=== PATIENT | male | born 1990 | race American Indian/Alaskan Native ===

== ENCOUNTER 2016-08-27 09:56 | Emergency (ER) | payer SELFPAY ==
[2016-08-27 11:27] LABS: Basophils % (Auto) 0.3 % (0.0-1.8); Eosinophils % (Auto) 0.1 % (0.0-4.3); Hematocrit 41.3 % (35.5-45.6); Hemoglobin 13.7 gm/dl (11.8-15.2); Mean Corpuscular HGB Conc 33 % (32-34); Mean Corpuscular Hemoglobin 31 pg (28-32); Mean Corpuscular Volume 94 fl (84-94); Platelet Count 190 K/mm3 (140-440); Red Blood Count 4.38 M/mm3 (3.65-5.03); White Blood Count 6.3 K/mm3 (4.5-11.0)
[2016-08-27 11:43] LABS: Anion Gap 16 mmol/L; BUN/Creatinine Ratio 15.55; Blood Urea Nitrogen 14 mg/dL (9-20); Calcium 9.4 mg/dL (8.4-10.2); Carbon Dioxide 26 mmol/L (22-30); Chloride 102.4 mmol/L (98-107); Glucose 127 mg/dL (75-100); Potassium 4.1 mmol/L (3.6-5.0); Sodium 140 mmol/L (137-145)
[2016-08-27] MEDS ORDERED: REGLAN IV ONE (13:20)
[2016-08-27] MEDS ORDERED: MORPHINE IV ONE (13:20)
[2016-08-27] MEDS ORDERED: BENADRYL IV ONE (13:20)
[2016-08-27] MEDS ORDERED: NACL 0.9% 1000 ML 1,000 ML IV ONE (13:20)
--- NOTE | 2016-08-27 13:21 | Emergency Department Report ---
ED Abdominal Pain HPI - General Chief Complaint: Nausea/Vomiting/Diarrhea Stated Complaint: FLANK PAIN /VOMITING Time Seen by Provider: 08/27/16 13:00 Source: patient, EMS Mode of arrival: Ambulatory Limitations: No Limitations - History of Present Illness Initial Comments: Patient complaining of intermittent right lower quadrant and right flank pain with nausea vomiting. Patient states he was seen for this in another ER 2 days ago but did not want to get his prescriptions filled because the pain went away. Patient denies fever, chills, dysuria, diarrhea. MD Complaint: abdominal pain -: Sudden, week(s) Radiation: RLQ, R flank Migration to: RLQ Severity: severe Quality: aching Consistency: intermittent, now resolved, colicky Improves With: nothing Associated Symptoms: nausea, vomiting. denies: diarrhea, chills, constipation - Related Data Previous Rx's Medication Instructions Recorded Last Taken Type Promethazine [Phenergan TAB] 25 mg PO Q6HR PRN #15 tab 08/27/16 Unknown Rx Sulfamethoxazole/Trimethoprim 1 each PO BID #20 tablet 08/27/16 Unknown Rx [Bactrim DS TAB] traMADol [Ultram 50 MG tab] 50 mg PO Q4HR PRN #15 tablet 08/27/16 Unknown Rx Allergies Allergy/AdvReac Type Severity Reaction Status Date / Time eggs Allergy Unknown Uncoded 08/27/16 10:48 ED Review of Systems ROS: Stated complaint: FLANK PAIN /VOMITING Other details as noted in HPI Constitutional: denies: chills, fever Eyes: denies: eye pain, eye discharge, vision change ENT: denies: ear pain, throat pain Respiratory: denies: cough, shortness of breath, wheezing Cardiovascular: denies: chest pain, palpitations Endocrine: no symptoms reported Gastrointestinal: abdominal pain, nausea, vomiting. denies: diarrhea, constipation, hematemesis, melena Genitourinary: denies: urgency, dysuria Musculoskeletal: denies: back pain, joint swelling, arthralgia Skin: denies: rash, lesions Neurological: denies: headache, weakness, paresthesias Psychiatric: denies: anxiety, depression Hematological/Lymphatic: denies: easy bleeding, easy bruising ED Past Medical Hx - Past Medical History Previous Medical History?: Yes Additional medical history: H.Pylori - Surgical History Past Surgical History?: Yes Additional Surgical History: EGD - Social History Smoking Status: Current Every Day Smoker Substance Use Type: Marijuana - Medications Home Medications: Home Medications Medication Instructions Recorded Confirmed Last Taken Type Promethazine [Phenergan TAB] 25 mg PO Q6HR PRN #15 tab 08/27/16 Unknown Rx Sulfamethoxazole/Trimethoprim 1 each PO BID #20 tablet 08/27/16 Unknown Rx [Bactrim DS TAB] traMADol [Ultram 50 MG tab] 50 mg PO Q4HR PRN #15 tablet 08/27/16 Unknown Rx ED Physical Exam - General Limitations: No Limitations General appearance: alert, in no apparent distress - Head Head exam: Present: atraumatic, normocephalic - Eye Eye exam: Present: normal appearance - ENT ENT exam: Present: mucous membranes moist - Neck Neck exam: Present: normal inspection - Respiratory Respiratory exam: Present: normal lung sounds bilaterally. Absent: respiratory distress - Cardiovascular Cardiovascular Exam: Present: regular rate, normal rhythm. Absent: systolic murmur, diastolic murmur, rubs, gallop - GI/Abdominal GI/Abdominal exam: Present: soft, tenderness, normal bowel sounds. Absent: distended, guarding, rebound - Rectal Rectal exam: Present: deferred - Extremities Exam Extremities exam: Present: normal inspection - Back Exam Back exam: Present: normal inspection, CVA tenderness (R). Absent: CVA tenderness (L), paraspinal tenderness, vertebral tenderness - Neurological Exam Neurological exam: Present: alert, oriented X3 - Psychiatric Psychiatric exam: Present: normal affect, normal mood - Skin Skin exam: Present: warm, dry, intact, normal color. Absent: rash ED Course Vital Signs 08/27/16 08/27/16 10:48 16:47 Temperature 97.8 F Pulse Rate 51 L 50 L Respiratory 18 20 Rate Blood Pressure 127/80 Blood Pressure 121/73 [Right] O2 Sat by Pulse 99 99 Oximetry - Reevaluation(s) Reevaluation #1: 08/27/16 14:47 Patient resting comfortably no distress noted. Patient afebrile normotensive normal cardiac. Reevaluation #2: 08/27/16 16:10 Discuss results findings with patient. Patient resting comfortably normotensive normal cardiac afebrile. Advised patient that after this visit he probably ought to get his prescriptions filled. ED Medical Decision Making - Lab Data Result diagrams: 08/27/16 11:15 08/27/16 11:15 - Radiology Data Radiology results: report reviewed The abdomen and pelvis without contrast shows bilateral nonobstructing stones no hydronephrosis noted by radiology. No acute intra-abdominal process noted by radiology. Critical care attestation.: If time is entered above; I have spent that time in minutes in the direct care of this critically ill patient, excluding procedure time. ED Disposition Clinical Impression: Renal colic on right side, Medical non-compliance Disposition: DISCHARGED TO HOME OR SELFCARE Is pt being admited?: No Does the pt Need Aspirin: No Condition: Good Instructions: Renal Colic (ED) Prescriptions: Promethazine [Phenergan TAB] 25 mg PO Q6HR PRN #15 tab PRN Reason: Nausea Sulfamethoxazole/Trimethoprim [Bactrim DS TAB] 1 each PO BID #20 tablet traMADol [Ultram 50 MG tab] 50 mg PO Q4HR PRN #15 tablet PRN Reason: Pain Referrals: PRIMARY CAREMD [Primary Care Provider] - 3-5 Days ELIZABETH ZHAO MD [Staff Physician] - 3-5 Days EMRE LEE MD [Staff Physician] - 3-5 Days Forms: Work/School Release Form(ED)
[2016-08-27 14:14] LABS: Urine Drugs of Abuse Note Disclamer
[2016-08-27 14:23] LABS: Bacteria,Urine 1+ /HPF (Negative); Bilirubin,Urine NEG (Negative); Blood,Urine SM (Negative); Ketones,Urine 20 mg/dL (Negative); Leukocyte Esterase,Urine NEG (Negative); Mucus,Urine 3+ /HPF; Nitrite,Urine NEG (Negative); Protein,Urine <15 mg/dL mg/dL (Negative); Urobilinogen,Urine < 2.0 mg/dL (<2.0)
--- NOTE | 2016-08-27 15:06 | Cat Scan Report ---
CT OF THE ABDOMEN AND PELVIS WITHOUT CONTRAST HISTORY: Right flank pain. TECHNIQUE: Helical CT without contrast. Sagittal and coronal reformatted images. FINDINGS: There are multiple, bilateral renal calyceal stones. No obvious ureteral stones or hydronephrosis. The kidneys are normal size, contour and position. No obvious cystic disease or mass. Within the limits of a noncontrast exam, the remaining abdominal and pelvic viscera are within normal limits. The liver, biliary system, pancreas, spleen, adrenal glands and bladder are unremarkable. The bowel loops are normal caliber and wall thickness. The appendix is not confidently identified. The aorta is normal caliber. No ascites, bulky adenopathy or inflammatory changes. The lung bases are clear. Normal heart size. No suspicious bony lesion. IMPRESSION: Bilateral nephrolithiasis.
[2016-08-27] MEDS ORDERED: ROCEPHIN/NS 1 GM/50 ML 1 GM/50 ML BAG IV ONE (16:17)
[2016-08-27 16:48] VITALS: BP 121/73
== END 2016-08-27 16:47 | disposition home or self-care (01) ==
LOC: ED 09:56
DX: N23 Unspecified renal colic (principal); Z91.14 Patient's other noncompliance with medication regimen; F17.200 Nicotine dependence, unspecified, uncomplicated; F12.10 Cannabis abuse, uncomplicated; Z91.012 Allergy to eggs
CPT/HCPCS: 36415; 74176; 80048; 80307; 81001; 85025; 96361; 96365; 96375; 99284; G0480; J0696; J1200; J2270; J2765; J7030; 80320

== ENCOUNTER 2016-08-28 06:56 | Emergency (ER) | payer SELFPAY ==
[2016-08-28 07:59] LABS: Basophils % (Auto) 0.2 % (0.0-1.8); Eosinophils % (Auto) 0.2 % (0.0-4.3); Hematocrit 39.6 % (35.5-45.6); Hemoglobin 13.2 gm/dl (11.8-15.2); Mean Corpuscular HGB Conc 34 % (32-34); Mean Corpuscular Hemoglobin 31 pg (28-32); Mean Corpuscular Volume 94 fl (84-94); Platelet Count 162 K/mm3 (140-440); Red Blood Count 4.22 M/mm3 (3.65-5.03); Red Cell Distribution Width 13.8 % (13.2-15.2); White Blood Count 9.1 K/mm3 (4.5-11.0)
[2016-08-28] MEDS ORDERED: ZOFRAN IV ONE (07:59)
[2016-08-28] MEDS ORDERED: NACL 0.9% 1000 ML 1,000 ML IV ONE (07:59)
[2016-08-28] MEDS ORDERED: DILAUDID IV ONE (07:59)
--- NOTE | 2016-08-28 07:59 | Emergency Department Report ---
ED General Adult HPI - General Chief complaint: Abdominal Pain Stated complaint: ABD PAIN Time Seen by Provider: 08/28/16 07:49 Source: patient, EMS (verbal report received from EMS.ems notes not available at time of chart dictation), RN notes reviewed, old records reviewed Mode of arrival: Stretcher Limitations: No Limitations - History of Present Illness Initial comments: This is a 26-year-old male. He is previously unknown to me. He is brought to the hospital by EMS for right lower quadrant pain, right flank pain, nausea and vomiting. The patient had a noncontrast CT scan of the abdomen and pelvis yesterday, which demonstrated multiple bilateral renal calyceal stones, with no obvious ureteral stones or hydronephrosis. The appendix was not identified, however there were no secondary signs of appendicitis noted. The pain is sharp, and decreases with hydromorphone. The patient also reports that the pain decreases when taking a hot shower. There is no testicular pain. No irritative or obstructive urinary symptoms. -: Gradual Location: abdomen Radiation: abdomen, flank Severity scale (0 -10): 10 Quality: burning, stabbing, aching Consistency: intermittent Improves with: medication Associated Symptoms: malaise, nausea/vomiting, weakness - Related Data Previous Rx's Medication Instructions Recorded Last Taken Type Promethazine [Phenergan TAB] 25 mg PO Q6HR PRN #15 tab 08/27/16 Unknown Rx Ketorolac [Toradol] 10 mg PO Q6H PRN #20 tablet 08/28/16 Unknown Rx Ondansetron [Zofran Odt] 4 mg PO QID PRN #20 tab.rapdis 08/28/16 Unknown Rx oxyCODONE [Roxicodone] 5 mg PO Q6HR PRN #15 tablet 08/28/16 Unknown Rx Allergies Allergy/AdvReac Type Severity Reaction Status Date / Time eggs Allergy Unknown Uncoded 08/27/16 10:48 ED Review of Systems ROS: Stated complaint: ABD PAIN Other details as noted in HPI Constitutional: see HPI Eyes: as per HPI ENT: as per HPI Respiratory: see HPI Cardiovascular: as per HPI Gastrointestinal: abdominal pain, nausea, vomiting Genitourinary: as per HPI Musculoskeletal: as per HPI Skin: as per HPI Neurological: as per HPI Psychiatric: as per HPI Hematological/Lymphatic: as per HPI ED Past Medical Hx - Past Medical History Hx Kidney Stones: Yes Additional medical history: H.Pylori - Surgical History Additional Surgical History: EGD - Social History Smoking Status: Unknown if ever smoked - Medications Home Medications: Home Medications Medication Instructions Recorded Confirmed Last Taken Type Promethazine [Phenergan TAB] 25 mg PO Q6HR PRN #15 tab 08/27/16 08/28/16 Unknown Rx Ketorolac [Toradol] 10 mg PO Q6H PRN #20 tablet 08/28/16 Unknown Rx Ondansetron [Zofran Odt] 4 mg PO QID PRN #20 tab.rapdis 08/28/16 Unknown Rx oxyCODONE [Roxicodone] 5 mg PO Q6HR PRN #15 tablet 08/28/16 Unknown Rx ED Physical Exam - General Limitations: No Limitations General appearance: alert, in distress - Head Head exam: Present: atraumatic, normocephalic - Eye Eye exam: Present: normal appearance, EOMI. Absent: nystagmus - ENT ENT exam: Present: normal exam, normal orophraynx, mucous membranes moist, normal external ear exam - Neck Neck exam: Present: normal inspection, full ROM. Absent: tenderness, meningismus - Respiratory Respiratory exam: Present: normal lung sounds bilaterally. Absent: respiratory distress, wheezes, rales, rhonchi, stridor, chest wall tenderness - Cardiovascular Cardiovascular Exam: Present: regular rate, normal rhythm, normal heart sounds. Absent: bradycardia, tachycardia, irregular rhythm, systolic murmur, diastolic murmur, rubs, gallop - GI/Abdominal GI/Abdominal exam: Present: soft, tenderness, normal bowel sounds, other (there is mild right lower quadrant tenderness, there is mild right flank tenderness. There is no rebound or guarding or peritoneal signs.). Absent: distended, guarding, rebound, rigid, pulsatile mass - Rectal Rectal exam: Present: deferred - exam: Present: normal inspection, other (is no testicular tenderness. There is normal cremasteric reflex bilaterally. There is normal testicular lie.). Absent: testicular tenderness External exam: Present: normal external exam - Extremities Exam Extremities exam: Present: normal inspection, full ROM, normal capillary refill. Absent: tenderness, pedal edema, joint swelling, calf tenderness - Back Exam Back exam: Present: normal inspection, full ROM. Absent: tenderness, muscle spasm, paraspinal tenderness, vertebral tenderness - Neurological Exam Neurological exam: Present: alert, oriented X3, other (Extraocular movements intact. Tongue midline. No facial droop. Facial sensation intact to light touch in the V1, V2, V3 distribution bilaterally. 5 and 5 strength in 4 extremities.. Sensation is intact to light touch in 4 extremities.). Absent: motor sensory deficit - Psychiatric Psychiatric exam: Present: normal affect, normal mood - Skin Skin exam: Present: warm, dry, intact, normal color. Absent: rash ED Course Vital Signs 08/28/16 08/28/16 08/28/16 07:26 07:36 14:32 Temperature 98.4 F Pulse Rate 78 54 L Respiratory 78 H 16 16 Rate Blood Pressure 128/48 Blood Pressure 128/48 115/68 [Left] O2 Sat by Pulse 97 97 100 Oximetry - Reevaluation(s) Reevaluation #1: 08/28/16 09:08 Differential diagnosis: Renal colic, appendicitis, cannabinoid hyperemesis syndrome Assessment and plan: 26-year-old male with right lower quadrant and right flank pain with nausea and vomiting. Had a CT scan yesterday demonstrating calyceal stones, but no ureteral stones, and the appendix is not confidently identified. He is clinically sober at this time, with a GCS of 15, and an NIH score of 0. CT scan findings are appreciated from yesterday, I am not confident that bilateral renal calyceal stones would cause the patient to have right lower quadrant pain, tenderness. It appears that he does consume marijuana, and the patient does report decrease in symptoms with hot shower. Therefore, may be a component cannabinoid hyperemesis syndrome. We will obtain CT scan with IV and oral contrast to exclude appendicitis (the patient is very thin and slender.) I appreciates that the patient has received 2 CAT scans in 2 days, however, given his physical exam findings, tenderness, clinical history, and CT scan findings from yesterday, I do not believe the CT scan findings from yesterday are anadequate explanation for his pain at this time. Reevaluation #2: CT scan does not demonstrate appendicitis. Nonspecific pelvic fluid is appreciated. These findings are discussed with the general surgeon, Dr. Pulliam, who recommends follow-up in one week, possible repeat CT scan. Agrees no indication for antibiotics, no indication for admission at this time. 03/28/17 13:15 Reevaluation #3: 08/28/16 13:24 Case is discussed with the general tube room supervisor, Dr. John, who states the patient can follow-up with him next week for outpatient follow-up. ED Medical Decision Making - Lab Data Result diagrams: 08/28/16 07:42 08/28/16 07:42 Vital Signs 08/28/16 08/28/16 07:26 07:36 Temperature 98.4 F Pulse Rate 78 Respiratory 78 H 16 Rate Blood Pressure 128/48 Blood Pressure 128/48 [Left] O2 Sat by Pulse 97 97 Oximetry Lab Results 08/28/16 08/28/16 Range/Units 07:42 07:42 WBC 9.1 (4.5-11.0) K/mm3 RBC 4.22 (3.65-5.03) M/mm3 Hgb 13.2 (11.8-15.2) gm/dl Hct 39.6 (35.5-45.6) % MCV 94 (84-94) fl MCH 31 (28-32) pg MCHC 34 (32-34) % RDW 13.8 (13.2-15.2) % Plt Count 162 (140-440) K/mm3 Lymph % (Auto) 9.7 L (13.4-35.0) % Wilson % (Auto) 5.9 (0.0-7.3) % Eos % (Auto) 0.2 (0.0-4.3) % Baso % (Auto) 0.2 (0.0-1.8) % Lymph # 0.9 L (1.2-5.4) K/mm3 Wilson # 0.5 (0.0-0.8) K/mm3 Eos # 0.0 (0.0-0.4) K/mm3 Baso # 0.0 (0.0-0.1) K/mm3 Seg Neutrophils % 84.0 H (40.0-70.0) % Seg Neutrophils # 7.6 (1.8-7.7) K/mm3 Sodium 138 (137-145) mmol/L Potassium 3.7 (3.6-5.0) mmol/L Chloride 102.6 (98-107) mmol/L Carbon Dioxide 23 (22-30) mmol/L Anion Gap 16 mmol/L BUN 14 (9-20) mg/dL Creatinine 1.0 (0.8-1.5) mg/dL Estimated GFR > 60 ml/min BUN/Creatinine Ratio 14.00 % Glucose 106 H (75-100) mg/dL Calcium 8.7 (8.4-10.2) mg/dL AST 31 (5-40) units/L ALT 17 (7-56) units/L Alkaline Phosphatase 50 (35-129) units/L Total Protein 6.8 (6.3-8.2) g/dL Albumin 4.1 (3.9-5) g/dL Albumin/Globulin Ratio 1.5 % Lipase 22 (13-60) units/L - Radiology Data Radiology results: report reviewed, image reviewed CT scan of the abdomen and pelvis with IV and oral contrast: Normal appendix is noted. Minimal free pelvic fluid is not currently excluded. Urinary bladder are unremarkable. Nonspecific distal esophageal wall thickening. Critical care attestation.: If time is entered above; I have spent that time in minutes in the direct care of this critically ill patient, excluding procedure time. ED Disposition Clinical Impression: Abdominal pain Disposition: DISCHARGED TO HOME OR SELFCARE Is pt being admited?: No Does the pt Need Aspirin: No Condition: Stable Instructions: Abdominal Pain (ED) Additional Instructions: Discontinue consumption of marijuana. This is most likely a significant contributing factor to your symptoms. Take the pain medication and nausea medication as directed. Follow up in 7 days with a primary care doctor, general surgeon, or tube room supervisor for repeat physical examination, possible repeat CT scan of the abdomen and pelvis. Dr. Pulliam is a local general surgeon. Dr. Noe Otto is a local primary care doctor. Dr. Herring is a local gastroenterology specialist. [facility] has a local patient service hotline: 4.360.GO.TO.[facility] (379.8210) in addition, I have specifically spoken to the tube room supervisor on-call, Dr. John, he requests that you contact his office next week to arrange follow-up. When he contacted the office, please mention that I have specifically spoken to Dr. John, and that he would like to see you in the office. Contact this phone number at any point to arrange close outpatient follow-up. Return to the ER right away with new pain, worsened pain, migration of pain, fevers or chills, intractable nausea or vomiting, inability to tolerate liquid feeds. in Addition, CT scan demonstrated presence of kidney stones. Follow up with a urology specialist within the next month for this. Dr. Mcmillan is a local urology specialist. Prescriptions: Ketorolac [Toradol] 10 mg PO Q6H PRN #20 tablet PRN Reason: Pain Ondansetron [Zofran Odt] 4 mg PO QID PRN #20 tab.rapdis PRN Reason: Nausea oxyCODONE [Roxicodone] 5 mg PO Q6HR PRN #15 tablet PRN Reason: Pain Referrals: PRIMARY CARE, [Primary Care Provider] - 3-5 Days NOE OTTO MD [Staff Physician] - 3-5 Days SUMIT PULLIAM MD [Staff Physician] - 3-5 Days GISEL HERRING MD [Staff Physician] - 3-5 Days ELIZABETH ZHAO MD [Staff Physician] - 3-5 Days
[2016-08-28 08:22] LABS: Alanine Aminotransferase 17 units/L (7-56); Albumin 4.1 g/dL (3.9-5); Albumin/Globulin Ratio 1.5 %; Alkaline Phosphatase 50 units/L (35-129); Anion Gap 16 mmol/L; Blood Urea Nitrogen 14 mg/dL (9-20); Calcium 8.7 mg/dL (8.4-10.2); Carbon Dioxide 23 mmol/L (22-30); Chloride 102.6 mmol/L (98-107); Glucose 106 mg/dL (75-100); Lipase 22 units/L (13-60); Potassium 3.7 mmol/L (3.6-5.0); Sodium 138 mmol/L (137-145); Total Protein 6.8 g/dL (6.3-8.2)
[2016-08-28 09:45] LABS: Bilirubin,Urine Negative (Negative); Blood,Urine Large (Negative); Ketones,Urine 80 mg/dL (Negative); Leukocyte Esterase,Urine Trace (Negative); Nitrite,Urine Negative (Negative); RBC,Urine > 182.0 /HPF (0.0-6.0); Urobilinogen,Urine < 2.0 mg/dL (<2.0)
[2016-08-28 09:46] LABS: Mucus,Urine 3+ /HPF
[2016-08-28] MEDS ORDERED: TORADOL ONE (11:23)
[2016-08-28] MEDS ORDERED: TORADOL IV ONE (11:30)
[2016-08-28] MEDS ORDERED: NACL ONE (11:31)
--- NOTE | 2016-08-28 12:16 | Cat Scan Report ---
CT ABDOMEN AND PELVIS WITH CONTRAST INDICATION: RLQ pain. COMPARISON: Yesterday. FINDINGS: Abdomen and pelvis CT performed following oral contrast and intravenous administration of 100 cc of Omnipaque 300. LUNG BASES: Nonspecific distal esophageal wall thickening, not excluded for gastroesophageal reflux and/or hiatal hernia, amongst others. ABDOMEN: Liver, spleen, gallbladder, pancreas, adrenals, nonaneurysmal abdominal aorta and IVC remain within normal limits. Non-hydronephrotic kidneys with known multiple small bilateral renal calculi not well-visualized due to presence of contrast. No ascites or significant adenopathy. Opacified GI tract nonobstructive and within normal limits. Normal appendix seen medial to the external right iliac vessels. PELVIS: Minimal pelvic free fluid not entirely excluded. Urinary bladder, seminal vesicles, prostate and rectosigmoid otherwise within normal limits. No size significant adenopathy. Unremarkable bones. CONCLUSION: 1. Minimal pelvic free fluid not entirely excluded, an abnormal finding in this male patient, though of uncertain etiology. Normal appendix. 2. Other findings, including distal esophageal prominence/thickening and known nephrolithiasis. Thank you for the opportunity to participate in this patient's care.
[2016-08-28] MEDS ORDERED: ULTRAM PO ONE (13:43)
[2016-08-28 14:33] VITALS: BP 115/68
== END 2016-08-28 14:56 | disposition home or self-care (01) ==
LOC: ED 06:56
DX: R10.31 Right lower quadrant pain (principal); Z91.012 Allergy to eggs
CPT/HCPCS: 36415; 74177; 80053; 81001; 83690; 85025; 96374; 96375; 99284; J1170; J1885; J2405; J7030; Q9967